=== PATIENT | male | born 1965 | race Caucasian/White ===

== ENCOUNTER 2025-04-16 14:53 | Inpatient (IN) | payer BC, OTHER ==
[~2025-04-16] VITALS: Ht 177.8 cm; Wt 73.5 kg
[2025-04-16] MEDS: IV NS 0.9% 1,000 ML BAG IV ONE (15:33)
[2025-04-16 15:42] LABS: PLATELET COUNT (AUTO) 62 K/uL (150-450); RED CELL DISTRIBUTION WIDTH 13.9 % (11.5-15.0); WHITE BLOOD COUNT (AUTO) 7.8 K/uL (4.3-11.0)
[2025-04-16 15:44] LABS: RED BLOOD CELL COUNT(AUTO) 1.83 MIL/uL (4.5-6.0)
[2025-04-16 15:46] LABS: CALCIUM, SERUM 9.7 mg/dL (8.5-10.1); CREATININE 3.3 mg/dL (0.6-1.3); SODIUM SERUM 138 mmol/L (136-145); UREA NITROGEN, BLOOD 62 mg/dL (7-18)
[2025-04-16 15:50] LABS: INR 2.23 (0.91-1.10)
[2025-04-16 15:52] LABS: ASPARTATE AMINOTRANSFERASE 117 U/L (15-37); TOTAL PROTEIN, SERUM 5.7 g/dL (6.4-8.2)
[2025-04-16] MEDS ORDERED: ONDANSETRON HCL/PF 4 MG/2 ML VIAL ONE (15:53)
[2025-04-16] MEDS: ONDANSETRON HCL/PF 4 MG/2 ML VIAL IVP ONE (15:57)
[2025-04-16 16:03] LABS: LACTIC ACID 12.7 mmol/L (0.4-2.0)
[2025-04-16 16:09] LABS: APPEARANCE,URINE CLEAR (CLEAR); BLOOD, URINE Negative Ery/uL (NEGATIVE); LEUKOCYTE ESTERASE ,URINE Negative (NEGATIVE); UGLUCOSE Negative (NEGATIVE)
[2025-04-16 16:11] LABS: NITRITE, URINE NEGATIVE (NEGATIVE)
[2025-04-16 16:12] LABS: ADD URINE CULTURE NO; CALCIUM OXALATE CRYSTALS,UR Rare /HPF (None Seen); SQUAMOUS EPITHELIAL CELL,UR None Seen /HPF (None Seen)
[2025-04-16 16:13] LABS: HYALINE CASTS, URINE Few /LPF (None Seen)
[2025-04-16] MEDS ORDERED: LOSA1TAB36 PO (16:19)
[2025-04-16] MEDS ORDERED: NEBI10TA2 PO (16:19)
[2025-04-16] MEDS ORDERED: PANTOPRAZOLE 80 MG in IV NS 0.9% 500 ML IV ONE (19:00)
[2025-04-16] MEDS ORDERED: PANTOPRAZOLE 40 MG VIAL ONE (19:38)
[2025-04-16] MEDS: PANTOPRAZOLE 80 MG in IV NS 0.9% 100 ML IV ONE (19:46)
[2025-04-16 19:55] LABS: BAND % (MANUAL) 1 % (0.0-5.0); LYMPHOCYTES % (MANUAL) 12 % (16-48); MONOCYTES % (MANUAL) 6 % (0-11.0); NEUTROPHILS % (MANUAL) 81 (42-76); PLATELET ESTIMATE DECREASED
[2025-04-16] MEDS: PANTOPRAZOLE 80 MG in IV NS 0.9% 500 ML IV ONE (20:25)
[2025-04-16 21:30] VITALS: BP 94/57; TEMP 98.2
[2025-04-16] MEDS ORDERED: MAGNESIUM HYDROXIDE 30 ML UDC PO PRN (21:30)
[2025-04-16] MEDS ORDERED: MAG HYDROX/AL HYDROX/SIMETH 30 ML UDC PO PRN (21:30)
[2025-04-16] MEDS ORDERED: ACETAMINOPHEN 325 MG TABLET PO PRN (21:30)
[2025-04-16] MEDS ORDERED: ONDANSETRON HCL/PF 4 MG/2 ML VIAL IVP PRN (21:30)
[2025-04-16 22:03] VITALS: BP 96/68; TEMP 98.2
[2025-04-16 23:00] VITALS: BP 101/61; TEMP 97.8
[2025-04-17] VITALS (14 sets, daily range): BP systolic 65–123; BP diastolic 40–90; TEMP 97.7–98.6; O2SAT 98–100
[2025-04-17] MEDS: IV NS 0.9% 1,000 ML IV PRN (01:32)
[2025-04-17 06:07] LABS: HBSAG SCREEN Negative (Negative); HEPATITIS A AB, IgM Negative (Negative); HEPATITIS B CORE AB, IgM Negative (Negative)
[2025-04-17 08:02] LABS: ASPARTATE AMINOTRANSFERASE 229.0 U/L (15-37); CALCIUM, SERUM 8.3 mg/dL (8.5-10.1); CREATININE 2.5 mg/dL (0.6-1.3); PHOSPHORUS 4.6 mg/dL (2.5-4.9); RED BLOOD CELL COUNT(AUTO) 2.30 MIL/uL (4.5-6.0); RED CELL DISTRIBUTION WIDTH 15.9 % (11.5-15.0); SODIUM SERUM 138.0 mmol/L (136-145); TOTAL PROTEIN, SERUM 5.1 g/dL (6.4-8.2); UREA NITROGEN, BLOOD 73.0 mg/dL (7-18); WHITE BLOOD COUNT (AUTO) 6.8 K/uL (4.3-11.0)
[2025-04-17 08:07] LABS: PLATELET COUNT (AUTO) 48 K/uL (150-450)
[2025-04-17] MEDS: METOPROLOL TARTRATE 50 MG TABLET PO SCH (08:20)
[2025-04-17] MEDS: LOSARTAN/HCTZ 50-12.5MG/ 1 EA TABLET PO SCH (08:20)
[2025-04-17] MEDS: PANTOPRAZOLE 40 MG VIAL IV SCH (08:21)
[2025-04-17 09:13] LABS: LYMPHOCYTES % (MANUAL) 27 % (16-48); MONOCYTES % (MANUAL) 3 % (0-11.0); NEUTROPHILS % (MANUAL) 70 (42-76); PLATELET ESTIMATE DECREASED
[2025-04-17] MEDS: MAGNESIUM OXIDE 400 MG TABLET PO ONE (11:23)
[2025-04-17] MEDS: LACTULOSE 10 G/15 ML UDC (PYXIS) PO SCH (16:30)
[2025-04-17] MEDS: OCTREOTIDE 500 MCG in IV NS 0.9% 99 ML IV SCH ×2 (17:00→18:25)
[2025-04-17] MEDS: CEFTRIAXONE 1 G in IV D5W 50 ML IV SCH (17:00)
[2025-04-17] MEDS: OCTREOTIDE 50 MCG in IV NS 0.9% 50 ML IV ONE ×2 (17:11→17:33)
[2025-04-17] MEDS: PROPOFOL 100 ML IV PRN (18:29)
[2025-04-17 20:27] LABS: ABG BASE EXCESS -1.7 mmol/L (-2.0-3.0); ABG OXYGEN SATURATION 99.2 % (94.0-98.0); ABG PCO2 25.8 mmHg (35.0-48.0); ABG PH 7.522 (7.350-7.450); ABG PO2 371.3 mmHg (83.0-108.0); ABG TOTAL HEMOGLOBIN 7.5 G/dL (13.5-17.5); FRACTIONATED INSPIRED OXYGEN 100.0 %; PEEP,BG 5 cm H2O; SET RATE, BG 12.0; VT, ABG 550 mL
[2025-04-17 23:40] LABS: RED BLOOD CELL COUNT(AUTO) 2.42 MIL/uL (4.5-6.0); RED CELL DISTRIBUTION WIDTH 17.3 % (11.5-15.0); WHITE BLOOD COUNT (AUTO) 6.5 K/uL (4.3-11.0)
[2025-04-17] MEDS: NOREPINEPHRINE 8MG/250ML RTU 250 ML IV ONE (23:40)
[2025-04-17] MEDS: NOREPINEPHRINE 8 MG in IV D5W 242 ML IV PRN (23:51)
[2025-04-17 23:54] LABS: PLATELET COUNT (AUTO) 48 K/uL (150-450)
[2025-04-18] VITALS (83 sets, daily range): BP systolic 79–140; BP diastolic 53–100; TEMP 98–98.4; O2SAT 95–100
[2025-04-18 00:44] LABS: LYMPHOCYTES % (MANUAL) 17 % (16-48); MONOCYTES % (MANUAL) 4 % (0-11.0); NEUTROPHILS % (MANUAL) 79 (42-76)
[2025-04-18 00:45] LABS: PLATELET ESTIMATE DECREASED
[2025-04-18 05:08] LABS: PLATELET COUNT (AUTO) 81 K/uL (150-450); RED BLOOD CELL COUNT(AUTO) 2.78 MIL/uL (4.5-6.0); RED CELL DISTRIBUTION WIDTH 17.4 % (11.5-15.0); WHITE BLOOD COUNT (AUTO) 12.1 K/uL (4.3-11.0)
[2025-04-18 05:27] LABS: ASPARTATE AMINOTRANSFERASE 307.0 U/L (15-37); CALCIUM, SERUM 7.5 mg/dL (8.5-10.1); CREATININE 2.0 mg/dL (0.6-1.3); PHOSPHORUS 2.9 mg/dL (2.5-4.9); SODIUM SERUM 139.0 mmol/L (136-145); TOTAL PROTEIN, SERUM 5.7 g/dL (6.4-8.2); UREA NITROGEN, BLOOD 75.0 mg/dL (7-18)
[2025-04-18 05:52] LABS: LYMPHOCYTES % (MANUAL) 13 % (16-48); MONOCYTES % (MANUAL) 4 % (0-11.0); NEUTROPHILS % (MANUAL) 83 (42-76); PLATELET ESTIMATE DECREASED
[2025-04-18] MEDS ORDERED: PHYTONADIONE INJ 1 MG/0.5 ML AMPUL IM ONE (10:00)
[2025-04-18] MEDS ORDERED: LACTULOSE 10 G/15 ML UDC (PYXIS) PR SCH (10:30)
[2025-04-18 10:53] LABS: ABG BASE EXCESS 2.3 mmol/L (-2.0-3.0); ABG OXYGEN SATURATION 96.8 % (94.0-98.0); ABG PCO2 31.2 mmHg (35.0-48.0); ABG PH 7.522 (7.350-7.450); ABG PO2 98.5 mmHg (83.0-108.0); ABG TOTAL HEMOGLOBIN 8.4 G/dL (13.5-17.5); FRACTIONATED INSPIRED OXYGEN 40.0 %; PEEP,BG 5 cm H2O; SITE, ABG RIGHT RADIAL
[2025-04-18] MEDS: Thiamine 300 MG in IV D5W 100 ML IV ONE (11:31)
[2025-04-18] MEDS: PHYTONADIONE INJ 10 MG/1 ML AMPUL IM ONE (11:37)
[2025-04-18] MEDS: LACTULOSE UDC 200 G in SODIUM CHLORIDE IRRIG SOLUTION 400 ML IR SCH (11:38)
[2025-04-18] MEDS: ALBUMIN 25% 25 GM in PREMIX 1 EA IV SCH (12:07)
[2025-04-18] MEDS: MIDODRINE HCL (5MG) 5 MG TABLET PO SCH (13:00)
[2025-04-18] MEDS: POTASSIUM CL. PREMIX PERIPHER. 50 ML IV SCH (13:27)
[2025-04-18] MEDS: Thiamine 500 MG in IV D5W 250 ML IV SCH (13:27)
[2025-04-18] MEDS: Magnesium 1GM/D5W 100ML PREMIX 100 ML IV SCH (13:40)
[2025-04-18 16:15] LABS: RED BLOOD CELL COUNT(AUTO) 2.41 MIL/uL (4.5-6.0); RED CELL DISTRIBUTION WIDTH 16.7 % (11.5-15.0); WHITE BLOOD COUNT (AUTO) 5.0 K/uL (4.3-11.0)
[2025-04-18 16:22] LABS: PLATELET COUNT (AUTO) 44 K/uL (150-450)
[2025-04-18] MEDS: RIFAXIMIN 550 MG TABLET PO SCH (16:55)
[2025-04-18 17:21] LABS: LYMPHOCYTES % (MANUAL) 10 % (16-48); MONOCYTES % (MANUAL) 2 % (0-11.0); NEUTROPHILS % (MANUAL) 88 (42-76); PLATELET ESTIMATE DECREASED
[2025-04-19] VITALS (39 sets, daily range): BP systolic 100–128; BP diastolic 60–83; TEMP 98–99.2; O2SAT 97–100
[2025-04-19 05:44] LABS: RED CELL DISTRIBUTION WIDTH 16.8 % (11.5-15.0); WHITE BLOOD COUNT (AUTO) 2.8 K/uL (4.3-11.0)
[2025-04-19 05:59] LABS: CALCIUM, SERUM 7.0 mg/dL (8.5-10.1); CREATININE 1.2 mg/dL (0.6-1.3); PHOSPHORUS 2.1 mg/dL (2.5-4.9); SODIUM SERUM 145.0 mmol/L (136-145); UREA NITROGEN, BLOOD 45.0 mg/dL (7-18)
[2025-04-19 06:09] LABS: PLATELET COUNT (AUTO) 44 K/uL (150-450); RED BLOOD CELL COUNT(AUTO) 1.93 MIL/uL (4.5-6.0)
[2025-04-19 06:32] LABS: LYMPHOCYTES % (MANUAL) 13 % (16-48); MONOCYTES % (MANUAL) 3 % (0-11.0); NEUTROPHILS % (MANUAL) 84 (42-76); PLATELET ESTIMATE DECREASED
[2025-04-19 08:29] LABS: INR 1.87 (0.91-1.10)
[2025-04-19] MEDS: PHYTONADIONE INJ 10 MG/1 ML AMPUL SQ SCH (08:32)
[2025-04-19] MEDS ORDERED: Thiamine 100 MG in IV D5W 50 ML IV SCH (09:00)
[2025-04-19] MEDS: LACTULOSE 10 G/15 ML UDC (PYXIS) PO SCH (11:29)
[2025-04-19] MEDS: NEUTRA PHOS 1 POWD.PACKET PO ONE (15:53)
[2025-04-19 17:21] LABS: RED BLOOD CELL COUNT(AUTO) 2.11 MIL/uL (4.5-6.0); RED CELL DISTRIBUTION WIDTH 16.3 % (11.5-15.0); WHITE BLOOD COUNT (AUTO) 2.8 K/uL (4.3-11.0)
[2025-04-19 17:26] LABS: PLATELET COUNT (AUTO) 40 K/uL (150-450)
[2025-04-19 18:50] LABS: LYMPHOCYTES % (MANUAL) 7 % (16-48); MONOCYTES % (MANUAL) 1 % (0-11.0); NEUTROPHILS % (MANUAL) 92 (42-76); PLATELET ESTIMATE DECREASED
[2025-04-19] MEDS ORDERED: NORM10004 IV (22:17)
[2025-04-19] MEDS ORDERED: methylPREDNISolone SOD SUCC IV (22:17)
[2025-04-19] MEDS ORDERED: THIA100V2 IJ (22:17)
[2025-04-19] MEDS ORDERED: CEFT1VIA14 IJ (22:17)
[2025-04-19] MEDS ORDERED: RIFA550T PO (22:17)
[2025-04-19] MEDS ORDERED: [UNRECOGNIZED DRUG - CODE] IJ (22:17)
[2025-04-19] MEDS ORDERED: ONDA4VIA23 IVP (22:17)
[2025-04-19] MEDS ORDERED: PHYT10AM SQ (22:17)
[2025-04-19] MEDS ORDERED: PANT40VI IV (22:17)
[2025-04-20] VITALS (33 sets, daily range): BP systolic 97–131; BP diastolic 58–85; TEMP 97.8–99.1; O2SAT 96–100
[2025-04-20 07:44] LABS: CALCIUM, SERUM 7.2 mg/dL (8.5-10.1); CREATININE 1.1 mg/dL (0.6-1.3); PHOSPHORUS 1.7 mg/dL (2.5-4.9); SODIUM SERUM 143.0 mmol/L (136-145); UREA NITROGEN, BLOOD 30.0 mg/dL (7-18)
[2025-04-20 08:27] LABS: RED BLOOD CELL COUNT(AUTO) 2.66 MIL/uL (4.5-6.0); RED CELL DISTRIBUTION WIDTH 16.1 % (11.5-15.0); WHITE BLOOD COUNT (AUTO) 3.5 K/uL (4.3-11.0)
[2025-04-20 09:07] LABS: PLATELET COUNT (AUTO) 42 K/uL (150-450)
[2025-04-20 09:26] LABS: LYMPHOCYTES % (MANUAL) 12 % (16-48); NEUTROPHILS % (MANUAL) 80 (42-76)
[2025-04-20 09:27] LABS: MONOCYTES % (MANUAL) 8 % (0-11.0); PLATELET ESTIMATE DECREASED
[2025-04-20 15:16] LABS: RED BLOOD CELL COUNT(AUTO) 2.84 MIL/uL (4.5-6.0); RED CELL DISTRIBUTION WIDTH 16.1 % (11.5-15.0); WHITE BLOOD COUNT (AUTO) 3.6 K/uL (4.3-11.0)
[2025-04-20 15:35] LABS: PLATELET COUNT (AUTO) 44 K/uL (150-450)
[2025-04-20] MEDS: K PHOS NEUTRAL 250 MG TABLET PO ONE (15:49)
[2025-04-20 15:52] LABS: LYMPHOCYTES % (MANUAL) 11 % (16-48); MONOCYTES % (MANUAL) 1 % (0-11.0); NEUTROPHILS % (MANUAL) 88 (42-76); PLATELET ESTIMATE DECREASED
[2025-04-20] MEDS: NEUTRA PHOS 1 POWD.PACKET PO ONE (15:53)
[2025-04-20 16:29] LABS: INR 1.51 (0.91-1.10)
[2025-04-21] VITALS (9 sets, daily range): BP systolic 115–130; BP diastolic 60–85; TEMP 98–98.8; O2SAT 95–99
[2025-04-21 05:16] LABS: RED BLOOD CELL COUNT(AUTO) 2.79 MIL/uL (4.5-6.0); RED CELL DISTRIBUTION WIDTH 16.3 % (11.5-15.0); WHITE BLOOD COUNT (AUTO) 3.8 K/uL (4.3-11.0)
[2025-04-21 05:19] LABS: CALCIUM, SERUM 6.6 mg/dL (8.5-10.1); CREATININE 1.0 mg/dL (0.6-1.3); PHOSPHORUS 1.6 mg/dL (2.5-4.9); SODIUM SERUM 140.0 mmol/L (136-145); UREA NITROGEN, BLOOD 23.0 mg/dL (7-18)
[2025-04-21 05:38] LABS: PLATELET COUNT (AUTO) 45 K/uL (150-450)
[2025-04-21 07:22] LABS: BASOPHILS % (MANUAL) 0 % (0.0-2.0); EOSINOPHILS % (MANUAL) 0 % (0-4); LYMPHOCYTES % (MANUAL) 12 % (16-48); MONOCYTES % (MANUAL) 2 % (0-11.0); NEUTROPHILS % (MANUAL) 86 (42-76); PLATELET ESTIMATE DECREASED
[2025-04-21] MEDS: NEUTRA PHOS 1 POWD.PACKET PO ONE (07:39)
[2025-04-21 07:57] LABS: ASPARTATE AMINOTRANSFERASE 82.0 U/L (15-37); TOTAL PROTEIN, SERUM 5.3 g/dL (6.4-8.2)
== END 2025-04-21 08:48 | disposition short-term general hospital (02) | DRG 432 ==
LOC: ER 14:55 → TELE1 20:11 → ICU 04-17 17:24
PROVIDERS: ADMIT Nurse Practitioner Family; ATTEND Nurse Practitioner Acute Care
PROC: 30233N1 Transfusion of Nonautologous Red Blood Cells into Peripheral Vein, Percutaneous Approach (ICD-10-PCS; 2025-04-16)
PROC: 0BH18EZ Insertion of Endotracheal Airway into Trachea, Via Natural or Artificial Opening Endoscopic (ICD-10-PCS; 2025-04-17)
PROC: 5A1935Z Respiratory Ventilation, Less than 24 Consecutive Hours (ICD-10-PCS; 2025-04-17)
PROC: 06L38CZ Occlusion of Esophageal Vein with Extraluminal Device, Via Natural or Artificial Opening Endoscopic (ICD-10-PCS; principal; 2025-04-17 17:00)
PROC: 02HV33Z Insertion of Infusion Device into Superior Vena Cava, Percutaneous Approach (ICD-10-PCS; 2025-04-19)
PROC: B548ZZA Ultrasonography of Superior Vena Cava, Guidance (ICD-10-PCS; 2025-04-19)
PROC: 30233K1 Transfusion of Nonautologous Frozen Plasma into Peripheral Vein, Percutaneous Approach (ICD-10-PCS; 2025-04-20)
DX: K70.30 Alcoholic cirrhosis of liver without ascites (principal); I81 Portal vein thrombosis; I85.11 Secondary esophageal varices with bleeding; J96.00 Acute respiratory failure, unspecified whether with hypoxia or hypercapnia; R57.8 Other shock; K85.20 Alcohol induced acute pancreatitis without necrosis or infection; N17.9 Acute kidney failure, unspecified; E44.1 Mild protein-calorie malnutrition; E87.20 Acidosis, unspecified; K76.6 Portal hypertension; D68.9 Coagulation defect, unspecified; D62 Acute posthemorrhagic anemia; K76.82 Hepatic encephalopathy; D69.6 Thrombocytopenia, unspecified; D70.9 Neutropenia, unspecified; E83.51 Hypocalcemia; E88.09 Other disorders of plasma-protein metabolism, not elsewhere classified; E86.1 Hypovolemia; K70.10 Alcoholic hepatitis without ascites; M89.8X9 Other specified disorders of bone, unspecified site; E83.39 Other disorders of phosphorus metabolism; E83.42 Hypomagnesemia; K57.30 Diverticulosis of large intestine without perforation or abscess without bleeding; Z20.822 Contact with and (suspected) exposure to COVID-19; N18.9 Chronic kidney disease, unspecified; R16.1 Splenomegaly, not elsewhere classified; F10.20 Alcohol dependence, uncomplicated; Z68.23 Body mass index [BMI] 23.0-23.9, adult; Z79.899 Other long term (current) drug therapy; K72.90 Hepatic failure, unspecified without coma; I12.9 Hypertensive chronic kidney disease with stage 1 through stage 4 chronic kidney disease, or unspecified chronic kidney disease; K71.2 Toxic liver disease with acute hepatitis
CPT/HCPCS: 36415; 36569; 36600; 71045-TC; 76700-TC; 80048-TC; 80053-TC; 80076-TC; 81001; 82140-TC; 82803-TC; 83605-TC; 83690-TC; 83735-TC; 84100-TC; 84478-TC; 85027-TC; 85385-TC; 85610-TC; 85730-TC; 86850-TC; 87040-TC; 87086-TC; 92526; 92611-TC; 94002-TC; 94003-TC; 94799-TC; 99082-TC; A4216; A4217; A4223; G0378; J0330; J0696; J2354; J2405; J2470; J2704; J2919; J3411; J3430; J3475; J3480; J3490; J7030; J7040; J7050; J7060; P9016; P9017; P9047